=== PATIENT | female | born 1990 | race Two or more races ===

== ENCOUNTER 2017-01-14 13:55 | Emergency (ER) | payer SELFPAY ==
[~2017-01-14] VITALS: Ht 162.6 cm; Wt 54.2 kg
[~2017-01-14 13:55] MED LIST: MEDR150V
[2017-01-14] MEDS ORDERED: KETOROLAC 30 MG/1 ML ONE (14:51)
[2017-01-14] MEDS ORDERED: DIPHENHYDRAMINE 50 MG/ML, 1ML ONE (14:51)
[2017-01-14] MEDS ORDERED: METOCLOPRAMIDE 5 MG/ML, 2ML ONE (14:51)
[2017-01-14 14:58] LABS: ASPARTATE AMINO TRANSFERASE 43 U/L (15-37); BLOOD UREA NITROGEN 14 mg/dL (7-18)
[2017-01-14] MEDS ORDERED: KETOROLAC 30 MG/1 ML IVPush ONE (15:00)
[2017-01-14] MEDS ORDERED: DIPHENHYDRAMINE 50 MG/ML, 1ML IVPush ONE (15:00)
[2017-01-14] MEDS ORDERED: METOCLOPRAMIDE 5 MG/ML, 2ML IVPush ONE (15:00)
[2017-01-14 15:21] VITALS: BP 120/79
[2017-01-14] MEDS ORDERED: OMNIPAQUE 350 MG/ML, 100ML BOTTLE ONE (15:51)
== END 2017-01-14 16:27 | disposition home or self-care (01) ==
LOC: ED 15:32
DX: R10.84 Generalized abdominal pain (principal)
CPT/HCPCS: 36415; 74177; 76830; 80053; 83690; 85025; 96374; 96375; 99285; J1885; J2765; Q9967